=== PATIENT | female | born 1995 | race African-American/Black ===

== ENCOUNTER 2016-08-21 07:12 | Emergency (ER) | payer BC ==
[2016-08-21 07:25] VITALS: BP 137/87; BMI 34.3
[2016-08-21] MEDS ORDERED: ZOFRAN TAB 4 MG PO STA (07:42)
[2016-08-21] MEDS ORDERED: ZOFRAN TAB 4 MG ONE (07:45)
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
[2016-08-21 08:02] LABS: BASOPHILS % (AUTO) 0.7 % (0.2-1.0); EOSINOPHILS # (AUTO) 0.1 x10^3/uL (0.0-0.2); EOSINOPHILS % (AUTO) 3.2 % (0.9-2.9); HEMATOCRIT 41.8 % (36.0-47.0); LYMPHOCYTES # (AUTO) 0.7 X10^3/uL (1.3-2.9); LYMPHOCYTES % (AUTO) 27.8 % (21.0-51.0); MEAN CORPUSCULAR HEMOGLOBIN 28.8 pg (27.0-34.0); MEAN CORPUSCULAR HGB CONC 33.4 g/dL (33.0-35.0); MEAN CORPUSCULAR VOLUME 86.1 fL (80.0-100.0); MONOCYTES # (AUTO) 0.4 x10^3/uL (0.3-0.8); MONOCYTES % (AUTO) 13.6 % (0.0-13.0); NEUTROPHILS # (AUTO) 1.4 x10^3/uL (2.2-4.8); NEUTROPHILS % (AUTO) 54.7 % (42.0-75.0); PLATELET COUNT 232 X10^3/uL (150.0-450.0); RED BLOOD COUNT 4.85 X10^6/uL (3.5-5.4); RED CELL DISTRIBUTION WIDTH 13.1 % (11.6-16.5); WHITE BLOOD COUNT 2.6 X10^3/uL (3.6-10.0)
[2016-08-21 08:28] LABS: ALANINE AMINOTRANSFERASE 31 Units/L (12-78); ALBUMIN 3.8 g/dL (3.4-5.0); ALKALINE PHOSPHATASE 43 Units/L (46-116); AMYLASE 65 Units/L (25-115); ASPARTATE AMINO TRANSFERASE 21 Units/L (15-37); BLOOD UREA NITROGEN 12 mg/dL (7-18); CALCIUM 8.7 mg/dL (8.5-10.1); CHLORIDE 103 mmol/L (98-107); CREATININE 0.91 mg/dL (0.55-1.02); GLUCOSE 100 mg/dL (65-99); LIPASE 96 Units/L (73-393); SODIUM 138 mmol/L (136-145); TOTAL PROTEIN 7.7 g/dL (6.4-8.2); eGFR BLACK RACES > 60 (>60); eGFR NON BLACK RACES > 60 (>60)
[2016-08-21 08:48] LABS: SERUM PREGNANCY TEST, QUAL NEGATIVE <10 mIU/mL
[2016-08-21] MEDS ORDERED: K-DUR TAB 20 MEQ PO STA (09:09)
--- NOTE | 2016-08-21 09:10 | RAD ---
HISTORY: Nausea and vomiting. Study: Acute abdominal series. Comparison: This radiograph dated December 17, 2013. Findings: The trachea is midline. The cardiac silhouette is within normal limits. The lungs are clear withou t focal infiltrate or effusion. The bony thorax is unremarkable. Flat plate and upright evaluation of the abdomen demonstrates a nonobstructive bowel gas pattern wit h a paucity small bowel gas. No pathological calcification can be observed. The bony structures ar e grossly intact. IMPRESSION: 1. No acute cardiopulmonary disease. 2. No evidence for acute abdominal pathology. Reported By:
[2016-08-21] MEDS ORDERED: K-DUR TAB 20 MEQ PO ONE (09:22)
[2016-08-21] MEDS ORDERED: LEVAQUIN TAB 500 MG ONE (09:22)
[2016-08-21] MEDS ORDERED: LEVAQUIN TAB 500 MG PO SCH (10:00)
== END 2016-08-21 09:26 | disposition home or self-care (01) ==
LOC: ER 07:19
DX: K52.89 Other specified noninfective gastroenteritis and colitis (principal); E87.6 Hypokalemia; J32.9 Chronic sinusitis, unspecified; D70.3 Neutropenia due to infection
CPT/HCPCS: 36415; 74022; 80053; 82150; 83690; 84703; 85025; 99283; S0181

== ENCOUNTER 2016-12-05 10:56 | Emergency (ER) | payer SELFPAY ==
[2016-12-05 11:01] VITALS: BP 122/68; BMI 34.3
[2016-12-05] MEDS ORDERED: TORADOL 60 MG VIAL IM ONE (12:00)
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
[2016-12-05] MEDS ORDERED: TORADOL 60 MG VIAL ONE (12:16)
--- NOTE | 2016-12-05 13:38 | CT ---
STUDY: CT HEAD WITHOUT CONTRAST HISTORY: Headache. TECHNIQUE: Multiple axial images of the head were obtained from the skull base to the vertex without administration of IV contrast. COMPARISON: None. FINDINGS: The sulci, cisterns and ventricles are age appropriate. There is no evidence of acute terr itorial infarction, hemorrhage, mass, mass effect, or midline shift. There are no abnormal intra-axia l or extra-axial fluid collections. There is no evidence of acute osseous abnormality or significant soft tissue swelling. Visualized par anasal sinuses and mastoid air cells are predominately clear. IMPRESSION: 1. No evidence of acute intracranial abnormality. Reported By:
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
== END 2016-12-05 14:20 | disposition home or self-care (01) ==
LOC: ER 11:05
DX: S63.91XA Sprain of unspecified part of right wrist and hand, initial encounter (principal); S60.221A Contusion of right hand, initial encounter; R51 Headache; V49.9XXA Car occupant (driver) (passenger) injured in unspecified traffic accident, initial encounter
CPT/HCPCS: 29260; 70450; 73130; 96372; 99283; J1885

== ENCOUNTER 2017-05-16 14:00 | Emergency (ER) | payer OTHER ==
[2017-05-16 14:05] VITALS: BP 131/58; BMI 35.5
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
[2017-05-16 17:21] LABS: BILIRUBIN,URINE NEGATIVE (NEGATIVE); BLOOD/HEMOGLOBIN,URINE 1+ (NEGATIVE); GLUCOSE, URINE NEGATIVE (NEGATIVE); KETONES,URINE NEGATIVE (NEGATIVE); LEUKOCYTE ESTERASE ,URINE 1+ (NEGATIVE); NITRITES,URINE NEGATIVE (NEGATIVE); PH,URINE 6.5 (5.0 - 8.0); PROTEIN,URINE NEGATIVE (NEGATIVE); UROBILINOGEN,URINE NORMAL (NORMAL)
[2017-05-16 17:22] LABS: APPEARANCE,URINE CLEAR (CLEAR); COLOR,URINE STRAW (YELLOW)
[2017-05-16 17:28] LABS: RBC,URINE 0-2 /HPF (NONE SEEN)
[2017-05-16 17:29] LABS: BACTERIA,URINE NEGATIVE /HPF (NEGATIVE); SQUAMOUS EPITHELIAL CELL,UR RARE /HPF (NEGATIVE)
--- NOTE | 2017-05-16 17:54 | US ---
History: 5 weeks and bleeding. Study: First trimester ultrasound. Comparison: None. Technique: Transabdominal and endovaginal pelvic ultrasound. Findings: LMP: March 27, 2017. Two poles and 2 yolk sacs are seen. The visualized ovaries appear normal. AUA: Fetus A 7 weeks 0 days. Fetus B 6 weeks 6 days. Gestational age by LMP: 7 weeks 1 day. ALLISON: January 01, 2018. FHR: None able to be measured. CRL: Fetus A 0.92 cm corresponding to 7 weeks 0 days. Fetus B 0.87 cm corresponding to 6 weeks 6 days. No significant free fluid is seen. Impression: Constellation of findings likely representing a twin . heart tones were un able to be measured at this time. demise cannot be entirely excluded. Recommend EXHIBIT BUILDER consulta tion, serial beta hCGs, and follow-up ultrasound for further characterization. Reported By:
== END 2017-05-16 18:31 | disposition home or self-care (01) ==
LOC: ER 14:11
DX: O20.9 Hemorrhage in early pregnancy, unspecified (principal); Z3A.01 Less than 8 weeks gestation of pregnancy
CPT/HCPCS: 36415; 76801; 81001; 84702; 86900; 86901; 99283; 99284